=== PATIENT | female | born 1950 | race Two or more races ===

== ENCOUNTER → 2021-12-12 | Day surgery (SDC) | payer OTHER ==
[~2021-12-12] MED LIST: ATORVASTATIN CA10 MG PO; BUPROPION HCL200 M1 PO; LAMICTAL200 M1 PO; PAXIL20 MG PO; SYNTHROID75 MCG PO
== END | disposition home or self-care (01) ==
LOC: ADM 12-04 07:45 → CIR.AMB 12-05 07:45
PROVIDERS: ATTEND Orthopaedic Surgery Hand Surgery
DX: S52.531A Colles' fracture of right radius, initial encounter for closed fracture (principal); Z20.822 Contact with and (suspected) exposure to COVID-19; E03.9 Hypothyroidism, unspecified; F32.A Depression, unspecified